=== PATIENT | female | born 1995 | race Caucasian/White ===

== ENCOUNTER 2024-10-25 21:11 | Emergency (ER) | payer SELFPAY ==
[~2024-10-25] VITALS: Ht 165.1 cm; Wt 61.0 kg
[2024-10-25 22:06] LABS: BASOPHILS % 0.8 % (0.0-2.0); EOSINOPHILS % 1.3 % (0.0-5.0); HEMATOCRIT. 40.4 % (36.0-48.0); HEMOGLOBIN. 13.2 g/dL (12.0-16.0); LYMPHOCYTES % 20.8 % (20.0-50.0); MEAN CORPUSCULAR HEMOGLOBIN 30.2 pg (28.0-32.0); MEAN CORPUSCULAR HGB CONC 32.7 g/dL (31.0-37.0); MEAN CORPUSCULAR VOLUME 92.5 fL (81.0-99.0); MEAN PLATELET VOLUME 9.6 fl (7.4-10.4); MONOCYTES % 4.9 % (2.0-8.0); NEUTROPHILS % 72.2 % (40.0-76.0); PLATELET 154 x1000/uL (130-400); RED BLOOD CELL COUNT 4.37 mill/uL (4.2-5.4); RED CELL DISTRIBUTION WIDTH 13.7 % (11.6-14.6); WHITE BLOOD COUNT 9.1 x1000/uL (4.5-11.0)
[2024-10-25 22:10] LABS: CLARITY URINE CLEAR (CLEAR); COLOR URINE YELLOW (YELLOW); GLUCOSE URINE NEGATIVE (NEGATIVE); KETONES URINE 1+ (NEGATIVE); LEUKOCYTE ESTERASE URINE 1+ (NEGATIVE); NITRITE URINE NEGATIVE (NEGATIVE); OCCULT BLOOD URINE NEGATIVE (NEGATIVE); PH URINE 5.5 (4.5-8.0); PROTEIN URINE 1+ (NEGATIVE); SPECIFIC GRAVITY URINE 1.012 (1.005-1.030); UROBILINOGEN URINE 0.2 E.U./dL (0.2-1.0)
[2024-10-25 22:13] LABS: CHLORIDE 106 mEq/L (98-107); POTASSIUM 3.6 mEq/L (3.5-5.1); SODIUM 137 mEq/L (136-145)
[2024-10-25 22:14] VITALS: TEMP 36.66960
[2024-10-25 22:14] LABS: CARBON DIOXIDE 23 mEq/L (21-32)
[2024-10-25 22:15] LABS: CALCIUM 9.2 mg/dL (8.7-10.4)
[2024-10-25 22:17] LABS: *AMPHETAMINES SCREEN URINE NEGATIVE (NEGATIVE); *BARBITURATES SCREEN URINE NEGATIVE (NEGATIVE); *BENZODIAZEPINES SCREEN URINE NEGATIVE (NEGATIVE); *COCAINE SCREEN URINE NEGATIVE (NEGATIVE); CANNABINOID URINE SCREEN PRESUMPTIVE POSITIVE (NEGATIVE); ECSTASY MDMA SCREEN URINE NEGATIVE (NEGATIVE); METHADONE URINE SCREEN NEGATIVE (NEGATIVE); OPIATES URINE SCREEN NEGATIVE (NEGATIVE); PHENCYCLIDINE URINE SCREEN NEGATIVE (NEGATIVE)
[2024-10-25 22:18] LABS: HCG SCREEN NEGATIVE
[2024-10-25 22:19] LABS: GLUCOSE 107 mg/dL (70-105); UREA NITROGEN BLOOD 9 mg/dL (9-23)
[2024-10-25 22:21] LABS: BACTERIA URINE TRACE; RBC URINE 0-2 /hpf (0-2); SQUAMOUS EPITHELIAL CELL URINE FEW /lpf (RARE/1+); TRICHOMONAS URINE RARE
[2024-10-25 22:26] VITALS: TEMP 98
[2024-10-25] MEDS: ACETAMINOPHEN 325MG TABLET PO NR (22:26)
[2024-10-25] MEDS: GABAPENTIN 100MG CAPSULE PO ONE (22:26)
[2024-10-25 22:28] LABS: ETHANOL BLOOD < 10 mg/dL (<10)
[2024-10-25] MEDS ORDERED: METR-167 MT (22:56)
[2024-10-25] MEDS: LORAZEPAM 2MG/ML INJ IV ONE (23:17)
[2024-10-25] MEDS ORDERED: HALOPERIDOL LACTATE 5MG/ML VIAL IM ONE (23:30)
[2024-10-25] MEDS: LORAZEPAM 2MG/ML INJ IM ONE (23:46)
[2024-10-26 00:06] VITALS: O2SAT 98
[2024-10-26 00:13] VITALS: BP 131/91; PULSE 87; RESP 16; O2SAT 100
== END 2024-10-26 00:37 | disposition home or self-care (01) ==
LOC: ER 21:11
DX: S00.512A Abrasion of oral cavity, initial encounter (principal); G40.909 Epilepsy, unspecified, not intractable, without status epilepticus; A59.01 Trichomonal vulvovaginitis; Z88.1 Allergy status to other antibiotic agents; X58.XXXA Exposure to other specified factors, initial encounter; Y93.89 Activity, other specified; Y92.89 Other specified places as the place of occurrence of the external cause; Y99.8 Other external cause status
CPT/HCPCS: 80305; 80048; 81003; 80307; 80329; 80320; 84703; 85025; 36415; 96374; 99291; J2060; A4663; Z7610 ×2; A4606; G0480